=== PATIENT | male | born 1965 | race Caucasian/White ===

== ENCOUNTER 2017-07-25 18:49 | Emergency (ER) | payer SELFPAY ==
[~2017-07-25] VITALS: Ht 175.3 cm; Wt 100.0 kg
[2017-07-25 19:05] VITALS: BP 147/100
== END 2017-07-25 19:29 | disposition left against medical advice (07) ==
LOC: EMS 18:51
DX: Z00.8 Encounter for other general examination (principal); Z53.21 Procedure and treatment not carried out due to patient leaving prior to being seen by health care provider